=== PATIENT | male | born 1945 | race Caucasian/White ===

== ENCOUNTER 2016-12-06 15:32 | Outpatient (RCR) | payer MEDICARE, OTHER ==
[~2016-12-06 15:32] MED LIST: COPAXONE 20M20 MG/M1 SQ; LINZESS290CAP; LIPITOR 10MG10 MG PO; MIRALAX510G PO; OMNICEF 300MG300 MG PO; PREVACID 30MG30 M1 PO; RAPAFLO8 MG PO
[2016-12-29] MEDS ORDERED: PROVIGIL200 MG PO (13:50)
[2016-12-29] MEDS ORDERED: GAS RELIEF125 MG PO (13:52)
[2016-12-29] MEDS ORDERED: TYLENOL 500MG500 MG PO (13:53)
[2016-12-29] MEDS ORDERED: TUMS EXTRA STR750 MG PO (13:54)
[2016-12-29] MEDS ORDERED: IRON325 MG PO (13:56)
[2016-12-29] MEDS ORDERED: MULTIPLE VITAMI1 CAP PO (13:56)
[2016-12-29] MEDS ORDERED: PRUNE JUICE PO (13:57)
[2016-12-29] MEDS ORDERED: MASON NATURAL1200 MG PO (13:57)
[2016-12-29] MEDS ORDERED: PROBIOTIC FORMU1 CAP PO (13:58)
[2016-12-29] MEDS ORDERED: VITAMIND3 5000 PO (13:59)
[2016-12-29] MEDS ORDERED: MELATONIN5 M1 SL (13:59)
[2016-12-29] MEDS ORDERED: ALEVE 220MG220 MG PO (14:00)
[2017-06-27] MEDS ORDERED: PRIMSOL50 MG/5 ML PO (13:19)
[2017-06-27] MEDS ORDERED: OCREVUS300 MG/10 IV (13:19)
== END 2017-01-22 11:39 | disposition home or self-care (01) ==
LOC: WSPT 15:32
DX: G35 Multiple sclerosis (principal)
CPT/HCPCS: G8978-GP; G8979-GP; G8980-GP

== ENCOUNTER 2016-12-29 12:42 | Day surgery (SDC) | payer MEDICARE, OTHER ==
[~2016-12-29] VITALS: Ht 177.8 cm; Wt 74.4 kg
[2016-12-29 13:43] VITALS: BP 116/73; PULSE 86; TEMP 98
[2016-12-29] MEDS ORDERED: PROVIGIL200 MG PO (13:50)
[2016-12-29] MEDS ORDERED: GAS RELIEF125 MG PO (13:52)
[2016-12-29] MEDS ORDERED: TYLENOL 500MG500 MG PO (13:53)
[2016-12-29] MEDS ORDERED: TUMS EXTRA STR750 MG PO (13:54)
[2016-12-29] MEDS ORDERED: MULTIPLE VITAMI1 CAP PO (13:56)
[2016-12-29] MEDS ORDERED: IRON325 MG PO (13:56)
[2016-12-29] MEDS ORDERED: MASON NATURAL1200 MG PO (13:57)
[2016-12-29] MEDS ORDERED: PRUNE JUICE PO (13:57)
[2016-12-29] MEDS ORDERED: PROBIOTIC FORMU1 CAP PO (13:58)
[2016-12-29] MEDS ORDERED: VITAMIND3 5000 PO (13:59)
[2016-12-29] MEDS ORDERED: MELATONIN5 M1 SL (13:59)
[2016-12-29] MEDS ORDERED: ALEVE 220MG220 MG PO (14:00)
[2016-12-29 15:30] VITALS: BP 118/84; PULSE 70; TEMP 96.9
[2016-12-29 15:45] VITALS: BP 94/72; PULSE 81
[2016-12-29 16:00] VITALS: BP 93/78; PULSE 76
[2016-12-29 16:15] VITALS: BP 102/72; PULSE 81
[2016-12-29 16:54] VITALS: BP 111/71; PULSE 68
[2017-06-27] MEDS ORDERED: OCREVUS300 MG/10 IV (13:19)
[2017-06-27] MEDS ORDERED: PRIMSOL50 MG/5 ML PO (13:19)
== END 2016-12-29 16:47 | disposition home or self-care (01) ==
LOC: SDCO 12:42
DX: C18.0 Malignant neoplasm of cecum (principal); K22.70 Barrett's esophagus without dysplasia; D50.0 Iron deficiency anemia secondary to blood loss (chronic); K31.819 Angiodysplasia of stomach and duodenum without bleeding; R19.5 Other fecal abnormalities; K44.9 Diaphragmatic hernia without obstruction or gangrene
CPT/HCPCS: J2250; J3010; J7030

== ENCOUNTER → 2017-01-12 | Outpatient (CLI) | payer MEDICARE, OTHER ==
[~2017-01-12] MED LIST changes: +ALEVE 220MG220 MG PO; +GAS RELIEF125 MG PO; +IRON325 MG PO; +MASON NATURAL1200 MG PO; +MELATONIN5 M1 SL; +MULTIPLE VITAMI1 CAP PO; +OCREVUS300 MG/10 IV; +PRIMSOL50 MG/5 ML PO; +PROBIOTIC FORMU1 CAP PO; +PROVIGIL200 MG PO; +PRUNE JUICE PO; +TUMS EXTRA STR750 MG PO; +TYLENOL 500MG500 MG PO; +VITAMIND3 5000 PO
== END ==
LOC: COL.RAD 08:11
DX: K63.9 Disease of intestine, unspecified (principal); N28.1 Cyst of kidney, acquired; K76.89 Other specified diseases of liver; N40.0 Benign prostatic hyperplasia without lower urinary tract symptoms; N21.1 Calculus in urethra
CPT/HCPCS: Q9967

== ENCOUNTER → 2017-01-17 | Outpatient (CLI) | payer MEDICARE, OTHER | LOC: COL.RAD 08:12 | DX: K44.9 Diaphragmatic hernia without obstruction or gangrene (principal); K76.9 Liver disease, unspecified | CPT/HCPCS: Q9967 ==

== ENCOUNTER → 2017-04-13 | Outpatient (CLI) | payer MEDICARE, OTHER ==
[~2017-04-13] VITALS: Ht 175.3 cm; Wt 68.0 kg
== END ==
LOC: SUN.DT 15:22
DX: G35 Multiple sclerosis (principal); E61.1 Iron deficiency; E55.9 Vitamin D deficiency, unspecified; R53.83 Other fatigue

== ENCOUNTER 2017-07-06 14:15 | Outpatient (RCR) | payer MEDICARE, OTHER | END 2017-07-09 | disposition still patient (30) | LOC: WSPT | DX: G35 Multiple sclerosis (principal) | CPT/HCPCS: G8978-GP; G8979-GP ==

== ENCOUNTER 2017-07-11 11:00 | Outpatient (RCR) | payer MEDICARE, OTHER ==
[2017-06-27] VITALS (7 sets, daily range): BP systolic 104–133; BP diastolic 57–78; PULSE 69–99; TEMP 98–98.2
[2017-07-11] VITALS (7 sets, daily range): BP systolic 107–128; BP diastolic 55–73; PULSE 62–84; TEMP 97.7–98.6
[~2017-07-11] VITALS: Ht 175.3 cm; Wt 70.0 kg
== END 2017-07-11 16:43 | disposition home or self-care (01) ==
LOC: EUO 11:00
DX: G35 Multiple sclerosis (principal); Z79.899 Other long term (current) drug therapy
CPT/HCPCS: C9399; J2930; J7050

== ENCOUNTER → 2017-07-31 14:00 | Outpatient (RCR) | payer MEDICARE, OTHER | LOC: WSC 07-10 10:59 → WSPT 07-10 13:00 | DX: G35 Multiple sclerosis (principal); E55.9 Vitamin D deficiency, unspecified; E61.1 Iron deficiency; R53.83 Other fatigue | CPT/HCPCS: G8979-GP; G8980-GP ==

== ENCOUNTER → 2017-09-21 | Outpatient (CLI) | payer MEDICARE, OTHER ==
[2017-09-21 10:25] LABS: COLLECTION METHOD CLEAN CATCH
[2017-09-21 10:39] LABS: ADJUSTED CALCIUM 9.8 mg/dL (8.4-10.2); ALBUMIN 4.4 gm/dL (3.5-5.0); BILIRUBIN,TOTAL 0.5 mg/dL (0.0-1.0); CALCIUM 10.1 mg/dL (8.4-10.2); CHOLESTEROL RISK RATIO 3.1; CREATININE, serum 0.68 mg/dL (0.66-1.25); POTASSIUM 4.5 mmol/L (3.4-5.0); TOTAL PROTEIN 6.7 gm/dL (6.4-8.2)
[2017-09-21 10:45] LABS: MUCOUS Present /lpf; PH 5 (5-8); SQUAMOUS EPITHELIAL 0-2 /hpf; URINE APPEARANCE Clear; URINE BACTERIA None Seen /hpf; URINE BILIRUBIN Negative (NEGATIVE); URINE BLOOD Negative (NEGATIVE); URINE COLOR Yellow; URINE GLUCOSE Negative (NEGATIVE); URINE KETONE Negative (NEGATIVE); URINE LEUKOCYTE ESTERASE Negative (NEGATIVE); URINE PROTEIN(semi-quant) Negative (NEGATIVE); URINE RBC 0-2 /hpf; URINE UROBILINOGEN Negative (NEGATIVE)
[2017-09-21 11:09] LABS: PSA-TOTAL 3.31 ng/mL (0-4); THYROID STIMULATING HORMONE 3.2 uIU/mL (0.465-4.680)
== END ==
LOC: COL.RAD 09-19 10:30
PROVIDERS: Internal Medicine
DX: Z87.891 Personal history of nicotine dependence (principal); I77.811 Abdominal aortic ectasia; E78.5 Hyperlipidemia, unspecified; R97.20 Elevated prostate specific antigen [PSA]; E55.9 Vitamin D deficiency, unspecified; G35 Multiple sclerosis
CPT/HCPCS: G0103

== ENCOUNTER 2017-12-24 05:56 | Inpatient (IN) | payer MEDICARE, OTHER ==
[~2017-12-24] VITALS: Ht 177.8 cm; Wt 74.1 kg
[2017-12-24 06:47] LABS: HEMATOCRIT 46.4 % (42.0-52.0); HEMOGLOBIN 15.5 g/dl (13.5-18.0); MEAN CELL VOLUME 97 fl (80.0-100.0); MEAN CORPUSCULAR HEMOGLOBIN 33 pg (27.0-31.0); MEAN CORPUSCULAR HGB CONC 33 g/dl (33.0-37.0); MEAN PLATELET VOLUME 10.5 fl (7.4-10.4); PLATELET COUNT 303 K/mm3 (130-400); RED BLOOD COUNT 4.77 M/mm3 (4.20-5.60)
[2017-12-24 06:57] LABS: ALANINE AMINOTRANSFERASE 33 U/L (21-72); ALBUMIN 5.1 gm/dL (3.5-5.0); ALKALINE PHOSPHATASE 88 U/L (50-136); ANION GAP 14 mmol/L (7-16); AST,SGOT 46 U/L (15-37); BILIRUBIN,TOTAL 1.1 mg/dL (0.0-1.0); BLOOD UREA NITROGEN 25 mg/dL (9-20); CALCIUM 10.5 mg/dL (8.4-10.2); CARBON DIOXIDE 32 mmol/L (22-30); CHLORIDE 95 mmol/L (98-107); GLUCOSE 189 mg/dL (74-106); LIPASE 79 U/L (23-300); POTASSIUM 3.8 mmol/L (3.4-5.0); SODIUM 141 mmol/L (137-145); TOTAL PROTEIN 8.2 gm/dL (6.4-8.2)
[2017-12-24 07:08] LABS: C-REACTIVE PROTEIN < 0.5 mg/dL (0.0-0.9)
[2017-12-24 07:51] LABS: BAND 9 % (0-10); LYMPHOCYTE 6 % (20.0-51.0); NEUTROPHILS 80 % (42.0-75.2); PLATELET ESTIMATE NORMAL (NORMAL)
[2017-12-24 08:25] LABS: COLLECTION METHOD CLEAN CATCH
[2017-12-24 08:40] LABS: MUCOUS Present /lpf; PH 6 (5-8); SQUAMOUS EPITHELIAL None Seen /hpf; URINE APPEARANCE Turbid; URINE BACTERIA Moderate /hpf; URINE BILIRUBIN Negative (NEGATIVE); URINE BLOOD Negative (NEGATIVE); URINE COLOR Amber; URINE GLUCOSE Negative (NEGATIVE); URINE KETONE Trace (NEGATIVE); URINE LEUKOCYTE ESTERASE 3+ (NEGATIVE); URINE NITRATE Negative (NEGATIVE); URINE PROTEIN(semi-quant) 1+ (NEGATIVE)
[2017-12-24 11:35] VITALS: BP 136/71; PULSE 97; TEMP 99.5
[2017-12-24 13:29] VITALS: BP 134/67; PULSE 98; TEMP 98.5
[2017-12-24 17:28] VITALS: BP 122/71; PULSE 105; TEMP 97.7
[2017-12-24 20:00] VITALS: BP 118/65; PULSE 97; TEMP 98.8
[2017-12-25] VITALS (818 sets, daily range): BP systolic 73–110; BP diastolic 57–72; PULSE 55–190; TEMP 97.5–98.9; O2SAT 85–99
[2017-12-25 06:19] LABS: HEMATOCRIT 41.8 % (42.0-52.0); HEMOGLOBIN 13.6 g/dl (13.5-18.0); MEAN CELL VOLUME 100 fl (80.0-100.0); MEAN CORPUSCULAR HEMOGLOBIN 33 pg (27.0-31.0); MEAN CORPUSCULAR HGB CONC 33 g/dl (33.0-37.0); MEAN PLATELET VOLUME 10.6 fl (7.4-10.4); PLATELET COUNT 242 K/mm3 (130-400); RED BLOOD COUNT 4.19 M/mm3 (4.20-5.60); REDCELL DISTRIBUTION WIDTH-CV 13.6 % (11.5-14.5)
[2017-12-25 06:45] LABS: CALCIUM 9.3 mg/dL (8.4-10.2); CREATININE, serum 0.81 mg/dL (0.66-1.25); POTASSIUM 3.9 mmol/L (3.4-5.0); TOTAL PROTEIN 6.6 gm/dL (6.4-8.2)
[2017-12-25 07:46] LABS: BAND 28 % (0-10); BASOPHIL 1 % (0-2); LYMPHOCYTE 7 % (20.0-51.0); NEUTROPHILS 62 % (42.0-75.2)
[2017-12-25 07:47] LABS: PLATELET ESTIMATE NORMAL (NORMAL)
[2017-12-26] VITALS (721 sets, daily range): BP systolic 106–128; BP diastolic 63–71; PULSE 62–79; TEMP 98.4–99.2; O2SAT 87–100
[2017-12-26 05:44] LABS: MEAN CELL VOLUME 101 fl (80.0-100.0); MEAN CORPUSCULAR HGB CONC 32 g/dl (33.0-37.0); MEAN PLATELET VOLUME 10.5 fl (7.4-10.4); PLATELET COUNT 180 K/mm3 (130-400); RED BLOOD COUNT 3.55 M/mm3 (4.20-5.60); REDCELL DISTRIBUTION WIDTH-CV 13.7 % (11.5-14.5)
[2017-12-26 05:50] LABS: MEAN CORPUSCULAR HEMOGLOBIN 32 pg (27.0-31.0)
[2017-12-26 05:51] LABS: HEMATOCRIT 35.7 % (42.0-52.0); HEMOGLOBIN 11.4 g/dl (13.5-18.0)
[2017-12-26 05:56] LABS: CALCIUM 8.8 mg/dL (8.4-10.2); CREATININE, serum 0.7 mg/dL (0.66-1.25); POTASSIUM 3.8 mmol/L (3.4-5.0)
[2017-12-27 01:42] VITALS: BP 135/80; PULSE 66; TEMP 98.5
[2017-12-27 04:54] VITALS: BP 136/68; PULSE 70; TEMP 97.6
[2017-12-27 07:02] LABS: BASO % 0.2 % (0.0-2.0); EOS % 0.1 % (0-4.0); GRAN # 12.9 (1.4-6.5); GRAN % 88.1 % (42.2-75.2); LYMPH # 0.5 (1.2-3.4); LYMPH % 3.2 % (20.0-51.0); MEAN CELL VOLUME 102 fl (80.0-100.0); MEAN CORPUSCULAR HGB CONC 32 g/dl (33.0-37.0); MEAN PLATELET VOLUME 10.9 fl (7.4-10.4); MONO # 1.1 (0.1-0.6); MONO % 7.2 % (1.7-9.3); PLATELET COUNT 213 K/mm3 (130-400); REDCELL DISTRIBUTION WIDTH-CV 13.3 % (11.5-14.5)
[2017-12-27 07:10] LABS: CALCIUM 8.6 mg/dL (8.4-10.2); CREATININE, serum 0.65 mg/dL (0.66-1.25); PHOSPHOROUS 2.3 mg/dL (2.5-4.5); POTASSIUM 3.6 mmol/L (3.4-5.0)
[2017-12-27 07:20] LABS: HEMATOCRIT 35.6 % (42.0-52.0); HEMOGLOBIN 11.3 g/dl (13.5-18.0); MEAN CORPUSCULAR HEMOGLOBIN 32 pg (27.0-31.0)
[2017-12-27 10:08] VITALS: BP 133/72; PULSE 74; TEMP 98.1
[2017-12-27 12:59] VITALS: BP 128/70; PULSE 67; TEMP 98.2
[2017-12-27 17:18] VITALS: BP 128/64; PULSE 66; TEMP 98.1
[2017-12-27 21:25] VITALS: BP 145/69; PULSE 75; TEMP 98.8
[2017-12-27 23:52] LABS: FOLATE (FOLIC ACID) 10.8 ng/mL (7.0-31.4)
[2017-12-28] VITALS (11 sets, daily range): BP systolic 113–143; BP diastolic 67–84; PULSE 65–70; TEMP 98–100.2; O2SAT 90–93
[2017-12-28 06:23] LABS: MEAN CELL VOLUME 99 fl (80.0-100.0); MEAN CORPUSCULAR HGB CONC 33 g/dl (33.0-37.0); MEAN PLATELET VOLUME 10.9 fl (7.4-10.4); PLATELET COUNT 228 K/mm3 (130-400); RED BLOOD COUNT 3.49 M/mm3 (4.20-5.60)
[2017-12-28 06:26] LABS: HEMATOCRIT 34.5 % (42.0-52.0); HEMOGLOBIN 11.2 g/dl (13.5-18.0); MEAN CORPUSCULAR HEMOGLOBIN 32 pg (27.0-31.0)
[2017-12-28 06:34] LABS: CALCIUM 8.3 mg/dL (8.4-10.2); CREATININE, serum 0.58 mg/dL (0.66-1.25); POTASSIUM 3.1 mmol/L (3.4-5.0)
[2017-12-28 07:27] LABS: BAND 6 % (0-10); BASOPHIL 1 % (0-2); LYMPHOCYTE 5 % (20.0-51.0); MYELOCYTE 1 % (0-0); NEUTROPHILS 85 % (42.0-75.2); PLATELET ESTIMATE NORMAL (NORMAL)
[2017-12-28 07:28] LABS: POLYCHROMASIA 1+
[2017-12-28 11:31] LABS: ARTERIAL BLD GAS O2 SATURATION 87.7 % (92-100); ARTERIAL BLD GAS TCO2 CT 28.3; ARTERIAL BLOOD GAS BASE EXCESS 2.5 (-2-2); ARTERIAL BLOOD GAS PCO2 41.4 mmHg (35-45); ARTERIAL BLOOD GAS PO2 53.4 mmHg (80-100); ARTERIAL BLOOD GAS pH 7.43 (7.35-7.45)
[2017-12-28 11:57] LABS: INR 1.2 (0.8-3.0); PROTHROMBIN TIME 14.2 SECONDS (9.7-12.8)
[2017-12-28 13:33] LABS: PARTIAL THROMBOPLASTIN TIME 29.5 SECONDS (26.0-37.0)
[2017-12-28 14:45] LABS: PHOSPHOROUS 2.6 mg/dL (2.5-4.5)
[2017-12-28 16:39] LABS: ARTERIAL BLD GAS O2 SATURATION 96.6 % (92-100); ARTERIAL BLD GAS TCO2 CT 28.9; ARTERIAL BLOOD GAS BASE EXCESS 2.4 (-2-2); ARTERIAL BLOOD GAS HCO3 27.5 meq/L (22-26); ARTERIAL BLOOD GAS PCO2 44.6 mmHg (35-45); ARTERIAL BLOOD GAS PO2 97.4 mmHg (80-100); ARTERIAL BLOOD GAS pH 7.41 (7.35-7.45)
[2017-12-28 18:14] LABS: ARTERIAL BLD GAS O2 SATURATION 97.5 % (92-100); ARTERIAL BLD GAS TCO2 CT 30.8; ARTERIAL BLOOD GAS BASE EXCESS 4.1 (-2-2); ARTERIAL BLOOD GAS HCO3 29.4 meq/L (22-26); ARTERIAL BLOOD GAS PCO2 47.1 mmHg (35-45); ARTERIAL BLOOD GAS pH 7.41 (7.35-7.45)
[2017-12-28 18:15] LABS: ARTERIAL BLOOD GAS PO2 130.2 mmHg (80-100)
[2017-12-29] VITALS (7 sets, daily range): BP systolic 107–144; BP diastolic 50–84; PULSE 69–87; TEMP 97.8–99.1
[2017-12-29 04:10] LABS: MEAN CELL VOLUME 99 fl (80.0-100.0); MEAN CORPUSCULAR HGB CONC 33 g/dl (33.0-37.0); MEAN PLATELET VOLUME 10.1 fl (7.4-10.4); PLATELET COUNT 202 K/mm3 (130-400); RED BLOOD COUNT 3.29 M/mm3 (4.20-5.60); REDCELL DISTRIBUTION WIDTH-CV 13.1 % (11.5-14.5)
[2017-12-29 04:16] LABS: HEMATOCRIT 32.4 % (42.0-52.0); HEMOGLOBIN 10.7 g/dl (13.5-18.0); MEAN CORPUSCULAR HEMOGLOBIN 33 pg (27.0-31.0)
[2017-12-29 04:26] LABS: ALBUMIN 2.6 gm/dL (3.5-5.0); BILIRUBIN,TOTAL 0.2 mg/dL (0.0-1.0); CALCIUM 7.6 mg/dL (8.4-10.2); CREATININE, serum 0.54 mg/dL (0.66-1.25); MAGNESIUM 1.9 mg/dL (1.6-2.3); PHOSPHOROUS 1.7 mg/dL (2.5-4.5); POTASSIUM 3.1 mmol/L (3.4-5.0)
[2017-12-29 04:32] LABS: BAND 3 % (0-10); EOSINOPHIL 5 % (0-4); LYMPHOCYTE 8 % (20.0-51.0); METAMYELOCYTE 3 % (0-0); NEUTROPHILS 77 % (42.0-75.2); POLYCHROMASIA 1+; ROULEAUX 2+; TOXIC GRANULATION PRESENT
[2017-12-29 04:33] LABS: OVALOCYTES 1+; SCHISTOCYTES 1+
[2017-12-29 04:34] LABS: ANISOCYTOSIS 1+; HELMET CELLS 1+; POIKILOCYTOSIS 2+; STOMATOCYTE 1+
[2017-12-29 05:16] LABS: ARTERIAL BLD GAS O2 SATURATION 98.1 % (92-100); ARTERIAL BLD GAS TCO2 CT 30.2; ARTERIAL BLOOD GAS BASE EXCESS 4.6 (-2-2); ARTERIAL BLOOD GAS HCO3 28.9 meq/L (22-26); ARTERIAL BLOOD GAS PO2 139.7 mmHg (80-100); ARTERIAL BLOOD GAS pH 7.46 (7.35-7.45)
[2017-12-29 09:14] LABS: IRON,SERUM 15 ug/dL (35-150)
[2017-12-29 09:23] LABS: TOTAL IRON BINDING CAPACITY 202 ug/dL (261-462)
[2017-12-29 09:49] LABS: ARTERIAL BLD GAS O2 SATURATION 95.1 % (92-100); ARTERIAL BLD GAS TCO2 CT 30.9; ARTERIAL BLOOD GAS BASE EXCESS 5.4 (-2-2); ARTERIAL BLOOD GAS HCO3 29.6 meq/L (22-26); ARTERIAL BLOOD GAS PCO2 41.6 mmHg (35-45); ARTERIAL BLOOD GAS PO2 75.4 mmHg (80-100); ARTERIAL BLOOD GAS pH 7.47 (7.35-7.45)
[2017-12-30] VITALS (7 sets, daily range): BP systolic 111–145; BP diastolic 60–89; PULSE 72–88; TEMP 98.2–102.8
[2017-12-30 05:20] LABS: ARTERIAL BLD GAS O2 SATURATION 95.7 % (92-100); ARTERIAL BLD GAS TCO2 CT 32.3; ARTERIAL BLOOD GAS PCO2 41.7 mmHg (35-45); ARTERIAL BLOOD GAS PO2 78.1 mmHg (80-100); ARTERIAL BLOOD GAS pH 7.49 (7.35-7.45)
[2017-12-30 06:09] LABS: MEAN CELL VOLUME 98 fl (80.0-100.0); MEAN CORPUSCULAR HGB CONC 33 g/dl (33.0-37.0); MEAN PLATELET VOLUME 10.5 fl (7.4-10.4); PLATELET COUNT 240 K/mm3 (130-400); RED BLOOD COUNT 3.55 M/mm3 (4.20-5.60); REDCELL DISTRIBUTION WIDTH-CV 13.2 % (11.5-14.5)
[2017-12-30 06:11] LABS: HEMATOCRIT 34.8 % (42.0-52.0); HEMOGLOBIN 11.5 g/dl (13.5-18.0); MEAN CORPUSCULAR HEMOGLOBIN 32 pg (27.0-31.0)
[2017-12-30 06:21] LABS: ALBUMIN 2.5 gm/dL (3.5-5.0); BILIRUBIN,TOTAL 0.2 mg/dL (0.0-1.0); CALCIUM 7.4 mg/dL (8.4-10.2); CREATININE, serum 0.56 mg/dL (0.66-1.25); MAGNESIUM 1.9 mg/dL (1.6-2.3); PHOSPHOROUS 2.8 mg/dL (2.5-4.5); POTASSIUM 3.3 mmol/L (3.4-5.0)
[2017-12-30 06:39] LABS: BAND 3 % (0-10); EOSINOPHIL 1 % (0-4); LYMPHOCYTE 17 % (20.0-51.0); METAMYELOCYTE 1 % (0-0); NEUTROPHILS 74 % (42.0-75.2); PLATELET ESTIMATE NORMAL (NORMAL)
[2017-12-30 06:40] LABS: HYPOCHROMIA 1+
[2017-12-31] VITALS (13 sets, daily range): BP systolic 87–146; BP diastolic 49–87; PULSE 78–88; TEMP 100.3–102.6
[2017-12-31 05:11] LABS: ARTERIAL BLD GAS O2 SATURATION 93.9 % (92-100); ARTERIAL BLD GAS TCO2 CT 32.4; ARTERIAL BLOOD GAS BASE EXCESS 7.2 (-2-2); ARTERIAL BLOOD GAS HCO3 31.1 meq/L (22-26); ARTERIAL BLOOD GAS PCO2 41.6 mmHg (35-45); ARTERIAL BLOOD GAS PO2 67.7 mmHg (80-100); ARTERIAL BLOOD GAS pH 7.49 (7.35-7.45)
[2017-12-31 05:35] LABS: MEAN CELL VOLUME 98 fl (80.0-100.0); MEAN CORPUSCULAR HGB CONC 33 g/dl (33.0-37.0); MEAN PLATELET VOLUME 10.5 fl (7.4-10.4); PLATELET COUNT 243 K/mm3 (130-400); RED BLOOD COUNT 3.53 M/mm3 (4.20-5.60); REDCELL DISTRIBUTION WIDTH-CV 13.2 % (11.5-14.5)
[2017-12-31 05:45] LABS: HEMATOCRIT 34.5 % (42.0-52.0); HEMOGLOBIN 11.4 g/dl (13.5-18.0); MEAN CORPUSCULAR HEMOGLOBIN 32 pg (27.0-31.0)
[2017-12-31 05:49] LABS: ALBUMIN 2.6 gm/dL (3.5-5.0); BILIRUBIN,TOTAL 0.2 mg/dL (0.0-1.0); CALCIUM 7.6 mg/dL (8.4-10.2); CREATININE, serum 0.56 mg/dL (0.66-1.25); MAGNESIUM 1.9 mg/dL (1.6-2.3); PHOSPHOROUS 2.5 mg/dL (2.5-4.5); POTASSIUM 3.7 mmol/L (3.4-5.0); TOTAL PROTEIN 5.2 gm/dL (6.4-8.2)
[2017-12-31 07:35] LABS: BAND 4 % (0-10); LYMPHOCYTE 20 % (20.0-51.0); NEUTROPHILS 76 % (42.0-75.2); NUCLEATED RED BLOOD CELL 1 (0-6)
[2017-12-31 07:36] LABS: PLATELET ESTIMATE NORMAL (NORMAL)
[2017-12-31 07:38] LABS: ANISOCYTOSIS 1+; POLYCHROMASIA 1+
[2017-12-31 11:41] LABS: ARTERIAL BLD GAS O2 SATURATION 96.6 % (92-100); ARTERIAL BLD GAS TCO2 CT 31.8; ARTERIAL BLOOD GAS BASE EXCESS 7.6 (-2-2); ARTERIAL BLOOD GAS HCO3 30.6 meq/L (22-26); ARTERIAL BLOOD GAS PCO2 37.4 mmHg (35-45); ARTERIAL BLOOD GAS PO2 86.5 mmHg (80-100); ARTERIAL BLOOD GAS pH 7.53 (7.35-7.45)
[2017-12-31 19:29] LABS: ARTERIAL BLD GAS O2 SATURATION 96.4 % (92-100); ARTERIAL BLOOD GAS BASE EXCESS 8.1 (-2-2); ARTERIAL BLOOD GAS HCO3 31.7 meq/L (22-26); ARTERIAL BLOOD GAS PCO2 40.5 mmHg (35-45); ARTERIAL BLOOD GAS PO2 84.9 mmHg (80-100); ARTERIAL BLOOD GAS pH 7.51 (7.35-7.45)
[2018-01-01 03:52] VITALS: BP 127/71; PULSE 95; TEMP 100.8
[2018-01-01 04:43] LABS: MEAN CELL VOLUME 99 fl (80.0-100.0); MEAN CORPUSCULAR HGB CONC 33 g/dl (33.0-37.0); PLATELET COUNT 266 K/mm3 (130-400); RED BLOOD COUNT 3.26 M/mm3 (4.20-5.60); REDCELL DISTRIBUTION WIDTH-CV 13.3 % (11.5-14.5)
[2018-01-01 04:47] LABS: HEMATOCRIT 32.2 % (42.0-52.0); HEMOGLOBIN 10.7 g/dl (13.5-18.0); MEAN CORPUSCULAR HEMOGLOBIN 33 pg (27.0-31.0)
[2018-01-01 04:53] LABS: ALANINE AMINOTRANSFERASE 29 U/L (21-72); ALBUMIN 2.7 gm/dL (3.5-5.0); ALKALINE PHOSPHATASE 53 U/L (50-136); ANION GAP 6 mmol/L (7-16); AST,SGOT 21 U/L (15-37); BILIRUBIN,TOTAL < 0.1 mg/dL (0.0-1.0); BLOOD UREA NITROGEN 17 mg/dL (9-20); CALCIUM 7.5 mg/dL (8.4-10.2); CARBON DIOXIDE 31 mmol/L (22-30); CHLORIDE 97 mmol/L (98-107); CREATININE, serum 0.49 mg/dL (0.66-1.25); GLUCOSE 104 mg/dL (74-106); POTASSIUM 3.9 mmol/L (3.4-5.0); SODIUM 135 mmol/L (137-145); TOTAL PROTEIN 5.3 gm/dL (6.4-8.2)
[2018-01-01 05:29] LABS: BAND 10 % (0-10); EOSINOPHIL 2 % (0-4); LYMPHOCYTE 9 % (20.0-51.0); METAMYELOCYTE 2 % (0-0); NEUTROPHILS 70 % (42.0-75.2)
[2018-01-01 05:30] LABS: PLATELET ESTIMATE NORMAL (NORMAL)
[2018-01-01 08:00] VITALS: BP 104/61; PULSE 90; TEMP 100.3
[2018-01-01 10:20] LABS: ARTERIAL BLD GAS O2 SATURATION 96.9 % (92-100); ARTERIAL BLD GAS TCO2 CT 32.4; ARTERIAL BLOOD GAS BASE EXCESS 6.5 (-2-2); ARTERIAL BLOOD GAS PCO2 44.2 mmHg (35-45); ARTERIAL BLOOD GAS PO2 99.8 mmHg (80-100); ARTERIAL BLOOD GAS pH 7.46 (7.35-7.45)
[2018-01-01 12:00] VITALS: BP 103/59; PULSE 86; TEMP 100.2
[2018-01-01 12:35] VITALS: BP 88/51; PULSE 91
[2018-01-01 16:00] VITALS: BP 109/63; BP 113/61; PULSE 65; PULSE 89; TEMP 98.9; TEMP 99.8
[2018-01-01 18:01] LABS: ARTERIAL BLD GAS O2 SATURATION 97.3 % (92-100); ARTERIAL BLD GAS TCO2 CT 30.8; ARTERIAL BLOOD GAS BASE EXCESS 3.5 (-2-2); ARTERIAL BLOOD GAS HCO3 29.3 meq/L (22-26); ARTERIAL BLOOD GAS PCO2 49.5 mmHg (35-45); ARTERIAL BLOOD GAS PO2 107.2 mmHg (80-100); ARTERIAL BLOOD GAS pH 7.39 (7.35-7.45)
[2018-01-01 20:05] VITALS: BP 113/52; PULSE 61; TEMP 100.2
[2018-01-02] VITALS: BP 94/51; PULSE 81; TEMP 100.2
[2018-01-02 04:00] VITALS: BP 118/72; PULSE 79; TEMP 99.6
[2018-01-02 05:34] LABS: MEAN CELL VOLUME 100 fl (80.0-100.0); MEAN CORPUSCULAR HGB CONC 32 g/dl (33.0-37.0); MEAN PLATELET VOLUME 10.4 fl (7.4-10.4); PLATELET COUNT 326 K/mm3 (130-400); RED BLOOD COUNT 3.43 M/mm3 (4.20-5.60); REDCELL DISTRIBUTION WIDTH-CV 13.5 % (11.5-14.5)
[2018-01-02 05:36] LABS: HEMATOCRIT 34.3 % (42.0-52.0); HEMOGLOBIN 11.1 g/dl (13.5-18.0); MEAN CORPUSCULAR HEMOGLOBIN 32 pg (27.0-31.0)
[2018-01-02 05:45] LABS: ALBUMIN 2.9 gm/dL (3.5-5.0); BILIRUBIN,TOTAL 0.2 mg/dL (0.0-1.0); CALCIUM 8.2 mg/dL (8.4-10.2); CREATININE, serum 0.58 mg/dL (0.66-1.25); MAGNESIUM 2.1 mg/dL (1.6-2.3); PHOSPHOROUS 2.4 mg/dL (2.5-4.5); POTASSIUM 4.5 mmol/L (3.4-5.0); TOTAL PROTEIN 5.8 gm/dL (6.4-8.2)
[2018-01-02 05:48] LABS: BAND 6 % (0-10); BASOPHIL 2 % (0-2); EOSINOPHIL 3 % (0-4); LYMPHOCYTE 23 % (20.0-51.0); METAMYELOCYTE 5 % (0-0); NEUTROPHILS 55 % (42.0-75.2); ROULEAUX 1+; TOXIC GRANULATION PRESENT
[2018-01-02 05:49] LABS: ANISOCYTOSIS 1+; BURR CELLS 1+; POIKILOCYTOSIS 1+; POLYCHROMASIA 1+
[2018-01-02 05:50] LABS: HELMET CELLS 1+; OVALOCYTES 1+
[2018-01-02 08:00] VITALS: BP 106/66; PULSE 87; TEMP 99.6
[2018-01-02 08:50] LABS: ARTERIAL BLD GAS O2 SATURATION 96.9 % (92-100); ARTERIAL BLD GAS TCO2 CT 26.9; ARTERIAL BLOOD GAS HCO3 25.8 meq/L (22-26); ARTERIAL BLOOD GAS PCO2 37.5 mmHg (35-45); ARTERIAL BLOOD GAS PO2 92.6 mmHg (80-100); ARTERIAL BLOOD GAS pH 7.46 (7.35-7.45)
[2018-01-02 12:00] VITALS: BP 132/70; PULSE 93; TEMP 101
[2018-01-02 16:00] VITALS: BP 126/71; PULSE 100; TEMP 100.5
[2018-01-02 20:00] VITALS: BP 119/79; PULSE 111; TEMP 100.8
[2018-01-03] VITALS: BP 104/61; PULSE 99; TEMP 99.2
[2018-01-03 04:00] VITALS: BP 98/56; PULSE 92; TEMP 98.6
[2018-01-03 05:02] LABS: ARTERIAL BLD GAS O2 SATURATION 97.3 % (92-100); ARTERIAL BLD GAS TCO2 CT 27.7; ARTERIAL BLOOD GAS BASE EXCESS 2.4 (-2-2); ARTERIAL BLOOD GAS HCO3 26.5 meq/L (22-26); ARTERIAL BLOOD GAS PCO2 39.4 mmHg (35-45); ARTERIAL BLOOD GAS PO2 103.5 mmHg (80-100); ARTERIAL BLOOD GAS pH 7.45 (7.35-7.45)
[2018-01-03 05:40] LABS: MEAN CELL VOLUME 99 fl (80.0-100.0); MEAN CORPUSCULAR HGB CONC 33 g/dl (33.0-37.0); MEAN PLATELET VOLUME 10.1 fl (7.4-10.4); PLATELET COUNT 356 K/mm3 (130-400); REDCELL DISTRIBUTION WIDTH-CV 13.4 % (11.5-14.5)
[2018-01-03 05:55] LABS: ALBUMIN 2.8 gm/dL (3.5-5.0); BILIRUBIN,TOTAL 0.2 mg/dL (0.0-1.0); CREATININE, serum 0.62 mg/dL (0.66-1.25); MAGNESIUM 1.9 mg/dL (1.6-2.3); PHOSPHOROUS 2.8 mg/dL (2.5-4.5); POTASSIUM 3.9 mmol/L (3.4-5.0); TOTAL PROTEIN 5.6 gm/dL (6.4-8.2)
[2018-01-03 05:57] LABS: HEMATOCRIT 31.6 % (42.0-52.0); HEMOGLOBIN 10.4 g/dl (13.5-18.0); MEAN CORPUSCULAR HEMOGLOBIN 33 pg (27.0-31.0)
[2018-01-03 06:34] LABS: BAND 13 % (0-10); BASOPHIL 1 % (0-2); EOSINOPHIL 2 % (0-4); LYMPHOCYTE 13 % (20.0-51.0); METAMYELOCYTE 2 % (0-0); NEUTROPHILS 62 % (42.0-75.2)
[2018-01-03 06:35] LABS: PLATELET ESTIMATE NORMAL (NORMAL)
[2018-01-03 08:00] VITALS: BP 106/63; PULSE 85; TEMP 98.7
[2018-01-03 12:00] VITALS: BP 126/83; PULSE 87; TEMP 98.2
[2018-01-03 13:40] LABS: ARTERIAL BLD GAS O2 SATURATION 95.9 % (92-100); ARTERIAL BLD GAS TCO2 CT 32.1; ARTERIAL BLOOD GAS BASE EXCESS 7.2 (-2-2); ARTERIAL BLOOD GAS HCO3 30.8 meq/L (22-26); ARTERIAL BLOOD GAS PCO2 39.8 mmHg (35-45); ARTERIAL BLOOD GAS PO2 76.4 mmHg (80-100); ARTERIAL BLOOD GAS pH 7.51 (7.35-7.45)
[2018-01-03 16:00] VITALS: BP 126/76; PULSE 82; TEMP 97.6
[2018-01-03 20:00] VITALS: BP 120/69; PULSE 82; TEMP 100.5
[2018-01-04] VITALS: BP 124/63; PULSE 79; TEMP 98.7
[2018-01-04 04:00] VITALS: BP 127/65; PULSE 78; TEMP 98.9
[2018-01-04 05:33] LABS: ARTERIAL BLD GAS O2 SATURATION 93.4 % (92-100); ARTERIAL BLD GAS TCO2 CT 28.7; ARTERIAL BLOOD GAS BASE EXCESS 4.6 (-2-2); ARTERIAL BLOOD GAS HCO3 27.6 meq/L (22-26); ARTERIAL BLOOD GAS PCO2 35.3 mmHg (35-45); ARTERIAL BLOOD GAS PO2 66.2 mmHg (80-100); ARTERIAL BLOOD GAS pH 7.51 (7.35-7.45)
[2018-01-04 05:33] LABS: MEAN CELL VOLUME 96 fl (80.0-100.0); MEAN CORPUSCULAR HGB CONC 34 g/dl (33.0-37.0); MEAN PLATELET VOLUME 9.8 fl (7.4-10.4); PLATELET COUNT 395 K/mm3 (130-400); REDCELL DISTRIBUTION WIDTH-CV 12.8 % (11.5-14.5)
[2018-01-04 05:36] LABS: HEMATOCRIT 30.7 % (42.0-52.0); HEMOGLOBIN 10.3 g/dl (13.5-18.0); MEAN CORPUSCULAR HEMOGLOBIN 32 pg (27.0-31.0)
[2018-01-04 05:47] LABS: ALBUMIN 2.8 gm/dL (3.5-5.0); BILIRUBIN,TOTAL 0.1 mg/dL (0.0-1.0); CALCIUM 7.9 mg/dL (8.4-10.2); CREATININE, serum 0.54 mg/dL (0.66-1.25); MAGNESIUM 1.9 mg/dL (1.6-2.3); POTASSIUM 3.7 mmol/L (3.4-5.0); TOTAL PROTEIN 5.7 gm/dL (6.4-8.2)
[2018-01-04 06:01] LABS: ANISOCYTOSIS 1+; BAND 2 % (0-10); EOSINOPHIL 2 % (0-4); LYMPHOCYTE 14 % (20.0-51.0); MYELOCYTE 1 % (0-0); NEUTROPHILS 70 % (42.0-75.2); PLATELET ESTIMATE NORMAL (NORMAL)
[2018-01-04 08:00] VITALS: BP 125/87; PULSE 91; TEMP 97.4
== END 2018-01-04 12:30 | DRG 393 ==
LOC: COL.ER 05:56 → SURG 08:29 → ICU 08:29 → SURG 12-26 14:37 → ICU 12-28 11:55
PROVIDERS: Anesthesiology Critical Care Medicine; Emergency Medicine; Family Medicine; Internal Medicine; Internal Medicine Critical Care Medicine; Internal Medicine Pulmonary Disease; Physician Assistant; Surgery
PROC: 5A2204Z Restoration of Cardiac Rhythm, Single (ICD-10-PCS; 2017-12-25)
PROC: 0BH17EZ Insertion of Endotracheal Airway into Trachea, Via Natural or Artificial Opening (ICD-10-PCS; principal; 2017-12-28)
PROC: 02H633Z Insertion of Infusion Device into Right Atrium, Percutaneous Approach (ICD-10-PCS; 2017-12-28)
PROC: 5A1955Z Respiratory Ventilation, Greater than 96 Consecutive Hours (ICD-10-PCS; 2017-12-28)
DX: K43.0 Incisional hernia with obstruction, without gangrene (principal); J96.01 Acute respiratory failure with hypoxia; I26.99 Other pulmonary embolism without acute cor pulmonale; J69.0 Pneumonitis due to inhalation of food and vomit; N39.0 Urinary tract infection, site not specified; E46 Unspecified protein-calorie malnutrition; I48.91 Unspecified atrial fibrillation; G35 Multiple sclerosis; E87.6 Hypokalemia; D53.9 Nutritional anemia, unspecified; E83.39 Other disorders of phosphorus metabolism; Z87.891 Personal history of nicotine dependence; Z85.038 Personal history of other malignant neoplasm of large intestine; Z68.23 Body mass index [BMI] 23.0-23.9, adult
CPT/HCPCS: 99222; 99223; 99232-AI; 99233-AI; 99239; A4217; A9284; C1751; C9113; G9654; J0282; J0330; J0610; J0692; J0696; J1120; J1200; J1450; J1644; J1650; J1956; J2185; J2250; J2270; J2405; J2550; J2704; J3370; J3411; J3475; J3480; J7030; J7050; J7060; J7070; J7131; Q9967

== ENCOUNTER 2018-08-16 11:14 | Outpatient (CLI) | payer MEDICARE, OTHER ==
[~2018-08-16] VITALS: Ht 177.8 cm; Wt 63.6 kg
[~2018-08-16 11:14] MED LIST changes: +BENADRYL50 MG PO; +CEPASTAT14.5 MG MM; +COLACE 100100 MG/CAP PO; +COLD EEZE PO; +MELATONIN5 M1 PO; +MIRALAX PA17 GM/Dose PO; +SYNTHROID0.075 MG/T PO; +ULTRAM 50MG TAB50 MG PO; +XARELTO20 MG PO; +[UNRECOGNIZED DRUG - OTHER] TOP
[2018-08-16 11:55] VITALS: BP 109/70; PULSE 86; TEMP 98.3
== END 2018-08-16 16:07 | disposition home or self-care (01) ==
LOC: EUO 11:14
DX: G35 Multiple sclerosis (principal); Z79.899 Other long term (current) drug therapy
CPT/HCPCS: J2350; J2930; J7050

== ENCOUNTER 2018-10-10 11:14 | Outpatient (CLI) | payer MEDICARE, OTHER ==
[2018-10-10] VITALS (8 sets, daily range): BP systolic 112–145; BP diastolic 58–89; PULSE 65–94; TEMP 97.8–98.2
[~2018-10-10] VITALS: Ht 177.8 cm; Wt 68.0 kg
[2018-10-10] MEDS ORDERED: MAG-OX 400400 MG/TAB PO (15:47)
[2018-10-10] MEDS ORDERED: DULCOLAX TAB5 MG PO (15:53)
== END 2018-10-10 16:09 | disposition home or self-care (01) ==
LOC: EUO 11:14
DX: G35 Multiple sclerosis (principal); Z79.899 Other long term (current) drug therapy
CPT/HCPCS: J2350; J2930; J7050